=== PATIENT | female | born 1970 ===

== ENCOUNTER 2016-12-26 08:00 | Outpatient (CLI) | payer OTHER | END 2016-12-26 08:01 | disposition home or self-care (01) | DX: R63.1 Polydipsia (principal); R07.9 Chest pain, unspecified ==

== ENCOUNTER 2017-04-08 15:26 | Outpatient (CLI) | payer OTHER ==
--- NOTE | 2017-04-09 11:00 | MRI Report ---
EXAM: RIGHT SHOULDER MRI WITHOUT CONTRAST EXAM DATE: 04/08/2017 04:32 PM. CLINICAL HISTORY: Shoulder pain and decreased range of motion. Adhesive capsulitis of right shoulder. Possible frozen shoulder. COMPARISON: Radiographs 03/30/2017. TECHNIQUE: Multiplanar, multisequence T1-weighted and fluid-sensitive sequences of the shoulder witho ut contrast. Other: None. FINDINGS: Rotator cuff: There is patchy increased T2 signal and thickening of the distal supraspinatus. Edema i s severe at the distal bursal surface. No discrete fluid-filled tear defect identified. No rotator cu ff muscle atrophy or fatty replacement. Long head biceps tendon: Intact demonstrating normal course, signal and morphology. There is some jez ma tracking adjacent to the long head biceps tendon which may represent strain involving a portion of the short head biceps. Labrum: Intact. No tear identified on this non-arthrographic study. Bones and articular surfaces: No significant articular cartilage defects are seen. There is some thic kening of the axillary joint capsule with slight degree of associated soft tissue edema. Similar vickey a and thickening at the rotator interval. Acromioclavicular joint: Unremarkable. Type I acromion. Trace fluid in the subacromial-subdeltoid bur sa. IMPRESSION: 1. Moderate supraspinatus tendinosis. 2. Focal edema adjacent to the long head biceps tendon below the shoulder joint. Possible strain invo lving short head biceps. 3. There is a small amount of soft tissue thickening and edema in the region of the axillary joint ca psule and rotator interval raising possibility of adhesive capsulitis. [facility] MUSCULOSKELETAL RADIOLOGY SECTION Referring Provider Line: [phone] SITE ID: [id number]
== END 2017-04-08 15:27 | disposition home or self-care (01) ==
LOC: DI 15:26
PROVIDERS: ATTEND Orthopaedic Surgery
DX: M67.911 Unspecified disorder of synovium and tendon, right shoulder (principal); R60.0 Localized edema

== ENCOUNTER 2017-04-13 07:33 | Outpatient (CLI) | payer OTHER ==
[2017-04-13 12:57] LABS: BASOPHILS % (AUTO) 0.6 %; EOSINOPHILS # (AUTO) 0.2 10^3/uL (0.0-0.7); EOSINOPHILS % (AUTO) 3.5 %; HCT - HEMATOCRIT 38.6 % (37.0-47.0); HGB - HEMOGLOBIN 12.8 g/dL (12.0-16.0); LYMPHOCYTES # (AUTO) 1.5 10^3/uL (1.5-3.5); LYMPHOCYTES % (AUTO) 26.9 %; MEAN CORPUSCULAR HEMOGLOBIN 30.8 pg (27.0-31.0); MEAN CORPUSCULAR HGB CONC 33.2 g/dL (32.0-36.0); MEAN CORPUSCULAR VOLUME 92.8 fL (81.0-99.0); MEAN PLATELET VOLUME 8.7 fL (7.9-10.8); MONOCYTES # (AUTO) 0.3 10^3/uL (0.0-1.0); MONOCYTES % (AUTO) 5.2 %; NEUTROPHILS # (AUTO) 3.7 10^3/uL (1.5-6.6); NEUTROPHILS % (AUTO) 63.8 %; RED BLOOD COUNT 4.16 10^6/uL (4.20-5.40); RED CELL DISTRIBUTION WIDTH 13.6 % (12.0-15.0); UNCORRECTED WHITE BLOOD COUNT 5.8 x10^3/uL; WHITE BLOOD COUNT 5.8 x10^3/uL (4.8-10.8)
[2017-04-13 13:40] LABS: ALBUMIN/GLOBULIN RATIO 1.6 (1.0-2.2); BILIRUBIN,TOTAL 0.6 mg/dL (0.2-1.0); CALCIUM 9.2 mg/dL (8.5-10.3); CREATININE 0.6 mg/dL (0.4-1.0); POTASSIUM 4.2 mmol/L (3.5-5.0); TOTAL PROTEIN 6.8 g/dL (6.7-8.2)
== END 2017-04-13 07:34 | disposition home or self-care (01) ==
LOC: LAB.WCP 07:33
PROVIDERS: ATTEND Family Medicine
DX: R10.31 Right lower quadrant pain (principal)
CPT/HCPCS: 36415; 80053; 82150; 83690; 85025

== ENCOUNTER 2017-05-09 12:00 | Day surgery (SDC) | payer OTHER ==
[~2017-05-09 12:00] MED LIST: LACTATED RINGERS 1,000 ML IV ONE
[2017-05-09] MEDS ORDERED: LACTATED RINGERS 1,000 ML IV ONE (12:05)
[2017-05-09 12:40] LABS: HCG UR QUAL NEGATIVE
[2017-05-09] MEDS ORDERED: MIDAZOLAM 2 MG/2 ML VIAL IVP ONE (13:00)
[2017-05-09] MEDS ORDERED: fentaNYL 100 MCG/2 ML VIAL IVP ONE (13:00)
[2017-05-09] MEDS ORDERED: DEXAMETHASONE 4 MG/ML VIAL IVP ONE (13:00)
[2017-05-09] MEDS ORDERED: methylPREDNISolone ACETATE 40 MG/ML VIAL IU ONE (13:03)
[2017-05-09] MEDS ORDERED: BUPIVACAINE 0.25%-EPI 1:200000 PF 30 ML VIAL SUBQ ONE (13:03)
[2017-05-09 13:32] VITALS: BP 136/87
--- NOTE | 2017-05-10 09:14 | OPERATIVE REPORT ---
DATE OF SURGERY: 05/09/2017 00:00:00 PREOPERATIVE DIAGNOSIS: Right idiopathic frozen shoulder syndrome. POSTOPERATIVE DIAGNOSIS: Right idiopathic frozen shoulder syndrome. NAME OF PROCEDURE: Closed manipulation right shoulder under interscalene block anesthetic with shoul esperanza injection subacromial. SURGEON: Koby Teague MD ANESTHESIA: Interscalene block. INDICATIONS FOR SURGERY: The patient is a 47-year-old female with a longstanding idiopathic right fro hailee shoulder that is not responding to conservative measures, to the point that the patient desires m anipulation for advancement and correction. DESCRIPTION OF OPERATIVE PROCEDURE: The patient was taken to the operating room and was given an inte rscalene block, which was very effective to the point that the patient had very little pain with move ment of her shoulder. Initial flexion was limited to 70 degrees and at this point in the manipulation the patient had excellent relief of symptoms and a crepitus and breaking up of adhesions in forward elevation. Additional cross body adduction and internal and external rotation were freed up as well, and the patient tolerated it well without complaints. After this, the shoulder was prepped with iodin e solution and injected into the subacromial space and partly into the glenohumeral space with total volume of 8 mL of lidocaine and 2 mL of Depo-Medrol 40 mg/mL. This was well tolerated. The patient wa s then taken to outpatient holding in stable condition without complications. There was no blood loss , there was no open surgery, and there were no complications. JOB #: [id number] EXT JOB #:[id number]
== END 2017-05-09 12:01 | disposition home or self-care (01) ==
LOC: SDS 12:00
PROVIDERS: ATTEND Orthopaedic Surgery
PROC: 0RSJXZZ Reposition Right Shoulder Joint, External Approach (ICD-10-PCS; principal; 2017-05-09 13:15)
DX: M75.01 Adhesive capsulitis of right shoulder (principal); Z87.891 Personal history of nicotine dependence; Z86.718 Personal history of other venous thrombosis and embolism
CPT/HCPCS: 23700; 81025; J1030; J7120

== ENCOUNTER 2017-08-14 16:14 | Outpatient (CLI) | payer OTHER ==
--- NOTE | 2017-08-16 15:47 | Mammography Report ---
DIGITAL SCREENING MAMMOGRAM: 08/14/2017 CLINICAL INDICATION: A 47-year-old with history of late childbearing, family history of breast cancer , for baseline. TECHNIQUE: Routine CC and MLO projections were obtained of the breasts. Bilateral laterally exaggera zoraida craniocaudal views. FINDINGS: The breasts demonstrate heterogeneously dense fibroglandular parenchyma bilaterally. Coars e and punctate, typically benign calcifications are present. No suspicious masses, clustered microcal cifications, or regions of architectural distortion are identified. IMPRESSION: BENIGN FINDINGS. RECOMMENDATION: ROUTINE ANNUAL SCREENING UNLESS OTHERWISE CLINICALLY INDICATED. BIRADS CATEGORY 2-BENIGN FINDINGS. STANDARD QUALIFYING STATEMENTS 1. This examination was reviewed with the aid of Computer-Aided Detection (CAD). 2. A negative or benign imaging report should not delay biopsy if clinically suspicious findings are present. Consider surgical consultation if warranted. More than 5% of cancers are not identified by i maging. 3. Dense breasts may obscure an underlying neoplasm. JOB #: [id number] EXT JOB #:[id number]
== END 2017-08-14 16:15 | disposition home or self-care (01) ==
LOC: DI.N 16:14
PROVIDERS: ATTEND Family Medicine
DX: Z12.31 Encounter for screening mammogram for malignant neoplasm of breast (principal); Z80.3 Family history of malignant neoplasm of breast
CPT/HCPCS: 77067